=== PATIENT | male | born 1955 | race Two or more races ===

== ENCOUNTER 2023-03-18 08:45 | Inpatient (IN) | payer MEDICARE, MEDICAID ==
[~2023-03-18] VITALS: Ht 162.6 cm; Wt 68.9 kg
[2023-03-18 11:09] LABS: Basophils # (auto) 0 10 ^3/uL (0-0.2); Basophils % (auto) 0.4 % (0.0-2.0); Eosinophils # (auto) 0.1 10 ^3/uL (0-0.8); Eosinophils % (auto) 0.7 % (0.0-7.0); Hematocrit 37.3 % (41.0-53.0); Hemoglobin 12.6 g/dL (13.5-17.5); Lymphocytes # (auto) 1.6 10 ^3/uL (0.4-5.4); Lymphocytes % (auto) 23.4 % (10.0-50.0); Mean Corpuscular Hemoglobin 28.7 pg (28.0-32.0); Mean Corpuscular Hgb Conc. 33.8 g/dL (32.0-36.0); Mean Corpuscular Volume 84.8 fL (80.0-100.0); Monocytes # (auto) 0.9 10 ^3/uL (0-1.3); Monocytes % (auto) 13.8 % (0.0-12.0); Neutrophils # (auto) 4.2 10 ^3/uL (1.6-8.6); Neutrophils % (auto) 61.7 % (37.0-80.0); Red Cell Distribution Width 14.6 % (11.8-14.3); White Blood Cell 6.8 10^3/uL (4.4-10.8)
[2023-03-18 12:01] LABS: Erythrocyte Sedimentation Rate 87 mm/hr (0-20)
[2023-03-18] MEDS ORDERED: VANCOMYCIN 1GM/200ML 250 ML IV ONE (13:00)
[2023-03-18] MEDS ORDERED: cefTRIAXone 1GM/50ML D5W 50 ML IV ONE (13:00)
[2023-03-18 13:17] LABS: Alanine Aminotransferase 17 U/L (7-40); Albumin 4.2 g/dL (3.2-4.8); Alkaline Phosphatase 226 U/L (46-116); Anion Gap 7 (5-15); Aspartate Aminotransferase 22 U/L (13-40); BUN/Creatinine Ratio 8.5 (10.0-20.0); Blood Urea Nitrogen 16 mg/dL (9-23); Carbon Dioxide 25 mmol/L (20-30); Chloride 100 mmol/L (98-107); Glucose 93 mg/dL (74-106); Potassium 2.8 mmol/L (3.5-5.1); Sodium 132 mmol/L (136-145); Uric Acid 11.4 mg/dL (3.7-9.2)
[2023-03-18 13:18] LABS: Bilirubin, Total 0.7 mg/dL (0.2-1.0); Total Protein 8.7 g/dL (5.7-8.2)
[2023-03-18] MEDS ORDERED: TICA90TA PO (13:38)
[2023-03-18] MEDS ORDERED: ATOR40TA52 PO (13:38)
[2023-03-18] MEDS ORDERED: METO-289 PO (13:38)
[2023-03-18] MEDS ORDERED: AZIT-43 PO (13:38)
[2023-03-18] MEDS ORDERED: ASPI-325 PO (13:38)
[2023-03-18] MEDS ORDERED: FURO40TA4 PO (13:38)
[2023-03-18] MEDS ORDERED: VANCOMYCIN PER PHARMACY 0 MG IV SCH (13:45)
[2023-03-18] MEDS ORDERED: COLCHICINE 0.6 MG CAP PO ONE (13:45)
[2023-03-18] MEDS ORDERED: methylPREDNISolone SOD SUCC 125 MG/2 ML VL IV ONE (13:45)
[2023-03-18] MEDS ORDERED: POTASSIUM EFFERVESENT TAB 25 MEQ PO ONE ×2 (13:45)
[2023-03-18 13:46] LABS: CRP High Sensitivity 1.71 mg/dL (<1.0)
[2023-03-18] MEDS ORDERED: ACETAMINOPHEN 325 MG TAB PO PRN (14:00)
[2023-03-18] MEDS ORDERED: POTASSIUM EFFERVESENT TAB 25 MEQ ONE (14:49)
[2023-03-18] MEDS ORDERED: IBUPROFEN 600 MG TAB PO ONE ×2 (17:09→21:34)
[2023-03-18] MEDS ORDERED: methylPREDNISolone SOD SUCC 125 MG/2 ML VL ONE (17:09)
[2023-03-18] MEDS: IBUPROFEN 600 MG TAB PO SCH ×2 (17:11→21:39)
[2023-03-18] MEDS ORDERED: TICAGRELOR 90 MG TAB ONE (21:34)
[2023-03-18] MEDS ORDERED: COLCHICINE 0.6 MG CAP ONE (21:34)
[2023-03-18] MEDS ORDERED: ATORVASTATIN 20 MG TAB ONE (21:35)
[2023-03-18] MEDS: TICAGRELOR 90 MG TAB PO SCH (21:38)
[2023-03-18] MEDS: COLCHICINE 0.6 MG CAP PO SCH (21:38)
[2023-03-18] MEDS: ATORVASTATIN 20 MG TAB PO SCH (21:39)
[2023-03-18 22:00] VITALS: BP 112/56; PULSE 67; RESP 18; TEMP 97.5; O2SAT 99
[2023-03-19] VITALS (7 sets, daily range): BP systolic 110–126; BP diastolic 59–71; PULSE 61–69; RESP 16–19; TEMP 97.6–98.3; O2SAT 98–100
[2023-03-19] MEDS: IBUPROFEN 600 MG TAB PO SCH ×3 (06:00→22:51)
[2023-03-19 06:55] LABS: Basophils # (auto) 0 10 ^3/uL (0-0.2); Basophils % (auto) 0.2 % (0.0-2.0); Eosinophils # (auto) 0 10 ^3/uL (0-0.8); Hematocrit 36.3 % (41.0-53.0); Hemoglobin 12.1 g/dL (13.5-17.5); Mean Corpuscular Hemoglobin 28.4 pg (28.0-32.0); Mean Corpuscular Hgb Conc. 33.4 g/dL (32.0-36.0); Mean Corpuscular Volume 84.8 fL (80.0-100.0); Monocytes # (auto) 0.2 10 ^3/uL (0-1.3); Monocytes % (auto) 3.8 % (0.0-12.0); Nucleated Red Blood Cells % 0.1 %; Red Blood Cells 4.28 10^6/uL (4.5-5.90); Red Cell Distribution Width 14.8 % (11.8-14.3); White Blood Cell 6.3 10^3/uL (4.4-10.8)
[2023-03-19 07:22] LABS: Alanine Aminotransferase 17 U/L (7-40); Albumin 3.7 g/dL (3.2-4.8); Alkaline Phosphatase 191 U/L (46-116); Anion Gap 9 (5-15); Aspartate Aminotransferase 25 U/L (13-40); BUN/Creatinine Ratio 12.6 (10.0-20.0); Blood Urea Nitrogen 24 mg/dL (9-23); Calcium 9.2 mg/dL (8.5-10.1); Carbon Dioxide 24 mmol/L (20-30); Chloride 99 mmol/L (98-107); Glucose 149 mg/dL (74-106); Potassium 3.8 mmol/L (3.5-5.1); Sodium 132 mmol/L (136-145)
[2023-03-19 07:23] LABS: Bilirubin, Total 0.6 mg/dL (0.2-1.0); Total Protein 7.6 g/dL (5.7-8.2)
[2023-03-19 07:46] LABS: Erythrocyte Sedimentation Rate 83 mm/hr (0-20)
[2023-03-19] MEDS: ASPirin-EC 81 mg tab PO SCH (09:52)
[2023-03-19] MEDS: TICAGRELOR 90 MG TAB PO SCH ×2 (09:52→22:50)
[2023-03-19] MEDS: COLCHICINE 0.6 MG CAP PO SCH ×2 (09:52→22:50)
[2023-03-19] MEDS: cefTRIAXone 1GM/50ML D5W 50 ML IV SCH (09:52)
[2023-03-19] MEDS: METOPROLOL SUCCINATE XL 50 MG TAB PO SCH (09:53)
[2023-03-19] MEDS ORDERED: ENOXAPARIN SOD 40 MG/0.4 ML SYRINGE SC SCH (10:00)
[2023-03-19] MEDS ORDERED: FUROSEMIDE 40 MG/4 ML VIAL IV ONE (13:00)
[2023-03-19] MEDS ORDERED: VANCOMYCIN 1GM/200ML 250 ML IV ONE ×2 (13:00→13:14)
[2023-03-19] MEDS ORDERED: FUROSEMIDE 40 MG/4 ML VIAL ONE (13:25)
[2023-03-19] MEDS: KETOCONAZOLE 2 % TOPICAL CREAM 15GM TOP SCH (22:00)
[2023-03-19] MEDS: ATORVASTATIN 20 MG TAB PO SCH (22:51)
[2023-03-20 05:00] VITALS: BP 122/61; PULSE 60; RESP 18; TEMP 97.5; O2SAT 100
[2023-03-20] MEDS: IBUPROFEN 600 MG TAB PO SCH ×3 (06:07→22:33)
[2023-03-20 09:00] VITALS: BP 127/63; PULSE 65; RESP 16; TEMP 97.7; O2SAT 99
[2023-03-20] MEDS ORDERED: FUROSEMIDE 40 MG/4 ML VIAL ONE (09:56)
[2023-03-20] MEDS: KETOCONAZOLE 2 % TOPICAL CREAM 15GM TOP SCH ×2 (09:58→22:34)
[2023-03-20] MEDS: cefTRIAXone 1GM/50ML D5W 50 ML IV SCH (09:58)
[2023-03-20] MEDS: ASPirin-EC 81 mg tab PO SCH (09:59)
[2023-03-20] MEDS: TICAGRELOR 90 MG TAB PO SCH ×2 (09:59→22:33)
[2023-03-20] MEDS: COLCHICINE 0.6 MG CAP PO SCH ×2 (09:59→22:33)
[2023-03-20] MEDS: METOPROLOL SUCCINATE XL 50 MG TAB PO SCH (09:59)
[2023-03-20] MEDS: FUROSEMIDE 40 MG/4 ML VIAL IV SCH (10:00)
[2023-03-20 13:00] VITALS: BP 129/85; PULSE 67; RESP 18; TEMP 97.6; O2SAT 100
[2023-03-20] MEDS ORDERED: VANCOMYCIN 750mg/250ml 250 ML IV ONE (15:30)
[2023-03-20 17:00] VITALS: BP 124/80; PULSE 73; RESP 16; TEMP 97.7; O2SAT 100
[2023-03-20 20:00] VITALS: BP 114/64; PULSE 71; RESP 16; TEMP 97.3
[2023-03-20] MEDS: ATORVASTATIN 20 MG TAB PO SCH (22:33)
[2023-03-21 05:00] VITALS: BP 114/64; PULSE 71; RESP 16; TEMP 97.3; O2SAT 100
[2023-03-21] MEDS: IBUPROFEN 600 MG TAB PO SCH ×3 (06:23→21:07)
[2023-03-21 09:00] VITALS: BP 131/71; PULSE 71; RESP 18; TEMP 97.4; O2SAT 97
[2023-03-21] MEDS: FUROSEMIDE 40 MG/4 ML VIAL IV SCH ×2 (09:36→10:34)
[2023-03-21] MEDS: COLCHICINE 0.6 MG CAP PO SCH ×2 (09:36→21:07)
[2023-03-21] MEDS: TICAGRELOR 90 MG TAB PO SCH ×2 (09:36→21:07)
[2023-03-21] MEDS: ASPirin-EC 81 mg tab PO SCH (09:36)
[2023-03-21] MEDS: HYDROcodone-ACET 5/325MG TAB PO PRN ×2 (09:36→18:00)
[2023-03-21] MEDS: METOPROLOL SUCCINATE XL 50 MG TAB PO SCH (09:36)
[2023-03-21] MEDS: cefTRIAXone 1GM/50ML D5W 50 ML IV SCH ×2 (09:37→10:34)
[2023-03-21] MEDS: KETOCONAZOLE 2 % TOPICAL CREAM 15GM TOP SCH ×2 (09:37→21:08)
[2023-03-21 13:00] VITALS: BP 127/76; PULSE 75; RESP 18; TEMP 98; O2SAT 99
[2023-03-21] MEDS: VANCOMYCIN 750mg/250ml 250 ML IV SCH (16:31)
[2023-03-21 17:00] VITALS: BP 120/62; PULSE 65; RESP 18; TEMP 98; O2SAT 100
[2023-03-21 20:00] VITALS: RESP 19
[2023-03-21] MEDS: ATORVASTATIN 20 MG TAB PO SCH (21:06)
[2023-03-21 22:00] VITALS: BP 116/55; PULSE 63; RESP 20; TEMP 97.5; O2SAT 98
[2023-03-22 05:00] VITALS: BP 122/67; PULSE 69; RESP 20; TEMP 97.5; O2SAT 98
[2023-03-22] MEDS: IBUPROFEN 600 MG TAB PO SCH ×3 (06:10→22:11)
[2023-03-22 08:00] VITALS: BP 114/69; PULSE 72; RESP 16; RESP 19; TEMP 97.9; O2SAT 100
[2023-03-22] MEDS: cefTRIAXone 1GM/50ML D5W 50 ML IV SCH (09:33)
[2023-03-22] MEDS: TICAGRELOR 90 MG TAB PO SCH ×2 (09:34→22:10)
[2023-03-22] MEDS: METOPROLOL SUCCINATE XL 50 MG TAB PO SCH (09:34)
[2023-03-22] MEDS: ASPirin-EC 81 mg tab PO SCH (09:34)
[2023-03-22] MEDS: COLCHICINE 0.6 MG CAP PO SCH (09:34)
[2023-03-22] MEDS: KETOCONAZOLE 2 % TOPICAL CREAM 15GM TOP SCH ×2 (09:35→22:12)
[2023-03-22] MEDS: FUROSEMIDE 40 MG/4 ML VIAL IV SCH (09:35)
[2023-03-22 12:00] VITALS: BP 107/57; PULSE 69; RESP 16; TEMP 98.1; O2SAT 100
[2023-03-22] MEDS: VANCOMYCIN 750mg/250ml 250 ML IV SCH (15:46)
[2023-03-22 16:00] VITALS: BP 122/67; PULSE 67; RESP 16; TEMP 98.1; O2SAT 100
[2023-03-22] MEDS ORDERED: methylPREDNISolone SOD SUCC 40 MG/ML VL IV ONE (18:30)
[2023-03-22 20:00] VITALS: BP 131/73; PULSE 73; RESP 16; TEMP 98.3; O2SAT 100
[2023-03-22 22:00] VITALS: BP 131/73; PULSE 73; RESP 16; TEMP 98.3; O2SAT 100
[2023-03-22] MEDS: ATORVASTATIN 20 MG TAB PO SCH (22:11)
[2023-03-23 05:00] VITALS: BP 121/66; PULSE 72; RESP 16; TEMP 98.3; O2SAT 100
[2023-03-23] MEDS: IBUPROFEN 600 MG TAB PO SCH ×2 (05:59→14:00)
[2023-03-23 08:00] VITALS: BP_SYST 117; BP_SYST 189; BP_DIAS 47; BP_DIAS 57; PULSE 55; PULSE 67; RESP 19; RESP 20; TEMP 98.1; TEMP 98.6; O2SAT 100; O2SAT 98
[2023-03-23] MEDS: ASPirin-EC 81 mg tab PO SCH (09:05)
[2023-03-23] MEDS: HYDROcodone-ACET 5/325MG TAB PO PRN (09:06)
[2023-03-23] MEDS: TICAGRELOR 90 MG TAB PO SCH (09:06)
[2023-03-23] MEDS: METOPROLOL SUCCINATE XL 50 MG TAB PO SCH (09:07)
[2023-03-23] MEDS: cefTRIAXone 1GM/50ML D5W 50 ML IV SCH (09:07)
[2023-03-23] MEDS: KETOCONAZOLE 2 % TOPICAL CREAM 15GM TOP SCH (09:10)
[2023-03-23] MEDS: FUROSEMIDE 40 MG/4 ML VIAL IV SCH (09:11)
[2023-03-23] MEDS ORDERED: COLCHICINE 0.6 MG CAP PO SCH (10:00)
[2023-03-23] MEDS ORDERED: COLC1TAB3 PO (10:18)
[2023-03-23] MEDS ORDERED: ALL100T PO (10:18)
[2023-03-23 12:00] VITALS: BP 107/63; PULSE 64; RESP 20; TEMP 98; O2SAT 100
== END 2023-03-23 14:05 | disposition home or self-care (01) | DRG 351 ==
LOC: ER 08:45 → OVERFLOW 13:59 → EAST 18:40
PROVIDERS: ADMIT Nurse Practitioner Family; ATTEND Family Medicine
DX: M10.071 Idiopathic gout, right ankle and foot (principal); I50.43 Acute on chronic combined systolic (congestive) and diastolic (congestive) heart failure; E87.1 Hypo-osmolality and hyponatremia; M86.8X7 Other osteomyelitis, ankle and foot; I13.0 Hypertensive heart and chronic kidney disease with heart failure and stage 1 through stage 4 chronic kidney disease, or unspecified chronic kidney disease; E87.6 Hypokalemia; M10.9 Gout, unspecified; N18.32 Chronic kidney disease, stage 3b; G89.29 Other chronic pain
CPT/HCPCS: 36415; 73630; 73700; 73718; 80053; 80202; 82565; 83605; 83735; 83880; 83930; 84132; 84550; 85025; 85652; 86141; 87040; 93306; 96365; 96367; 96375; G0378